=== PATIENT | male | born 1980 | race Caucasian/White ===

== ENCOUNTER 2017-05-14 14:30 | Emergency (ER) | payer MEDICAID ==
[2017-05-14 14:38] VITALS: BP 119/73; BMI 34.4
--- NOTE | 2017-05-14 15:05 | DR.GENAD ---
HPI - PCP Primary Care Physician: JORDANA CLARK - Complaint/Symptoms Chief Complaint Doctors Comments: Patient presents for evaluation secondary to guardian wanting to have cleared. He hit hit head on the corner of the night stand.w/o any trauma or burise. Chief Complaint:: PT C/O TRIPPING THIS AM AROUND 0500 AND HITTING HIS NIGHT STAND PT POINTS TO HIS LEFT UPPER EYE AREA, NO BRUISES OR EDEMA NOTED .. PT IS ALTERT AND ORIENTED TIMES FOUR . Self Treatment fo Chief Complaint: PT HAS HX OF MR AND HIS GURADIAN WANTED HIM CHECKED . - Source History Provided: Patient, Other - Mode of Arrival Mode of Arrival: Ambulatory - Timing Onset of Chief Complaint: 05/14/17 PMH - PMH Past Medical History: No Past Medical History: Hyperthyroidism Past Surgical History: No - Family History History of Family Medical Conditions: No - Social History Does patient currently use any type of tobacco product: No Have you used tobacco products in the last 12 months: No Type of Tobacco Use: None Does any household member use tobacco: No Alcohol Use: None Do you use any recreational Drugs:: No Lives With: Other Lives Where: Assisted Care - infectious screening In the last 2 months have you had wt loss of >10#?: NO Have you had fever, night sweats or hemotysis?: No Have you traveled outside the country in the last 6 months?: No Isolation: Standard ROS - Review of Systems Eyes: No Symptoms Reported ENTM: No Symptoms Reported Respiratoy: No Symptoms Reported Cardiovascular: No Symptoms Reported Gastrointestinal/Abdominal: No Symptoms Reported Genitourinary: No Symptoms Reported Neurological: No Symptoms Reported Musculoskeletal: No Symptoms Reported Integumentary: No Symptoms Reported Hematologic/Lymphatic: No Symptoms Reported Endocrine: No Symptoms Reported Psychiatric: No Symptoms Reported All Other Systems: Reviewed and Negative PE - Vital Signs Vitals: Temperature 97.2 F Pulse Rate 73 Respiratory Rate 20 Blood Pressure 119/73 O2 Sat by Pulse Oximetry 100 - Diagnosis Discharge Problem: Head contusion Qualifiers: Encounter type: initial encounter Contusion of head detail: other part of head Qualified Code(s): S00.83XA - Contusion of other part of head, initial encounter - Discharge Plan Condition: Stable - Follow ups/Referrals Follow ups/Referrals: Skip James [Primary Care Provider] - 3 days - Instructions
== END 2017-05-14 15:35 | disposition home or self-care (01) ==
LOC: ER 14:43
DX: S00.83XA Contusion of other part of head, initial encounter (principal); X58.XXXA Exposure to other specified factors, initial encounter; Y92.9 Unspecified place or not applicable
CPT/HCPCS: 99281